=== PATIENT | male | born 1960 | race Asian ===

== ENCOUNTER 2017-07-30 14:02 | Emergency (ER) | payer MEDICAID ==
[~2017-07-30] VITALS: Ht 165.1 cm; Wt 68.0 kg
[2017-07-30 14:02] VITALS: BP 159/102
[2017-07-30] MEDS ORDERED: CLINDAMYCIN HCL 150 MG CAPSULE PO ONE ×2 (14:45→15:00)
== END 2017-07-30 14:50 | disposition home or self-care (01) ==
LOC: ER 14:03
DX: S90.821A Blister (nonthermal), right foot, initial encounter (principal); L03.116 Cellulitis of left lower limb; L04.3 Acute lymphadenitis of lower limb; F17.200 Nicotine dependence, unspecified, uncomplicated; W86.8XXA Exposure to other electric current, initial encounter; Y93.C9 Activity, other involving computer technology and electronic devices; Y92.89 Other specified places as the place of occurrence of the external cause; Y99.0 Civilian activity done for income or pay
CPT/HCPCS: 99283; A4606; Z7610

== ENCOUNTER 2017-08-25 21:48 | Emergency (ER) | payer MEDICAID ==
--- NOTE | 2017-08-25 22:39 | NUR ---
CALLED FOR TRIAGE X3; NO ANSWER
--- NOTE | 2017-08-25 22:45 | NUR ---
INFORMED PT LEFT
== END 2017-08-25 22:45 | disposition left against medical advice (07) ==
LOC: ER 21:51
DX: L03.019 Cellulitis of unspecified finger (principal); Z53.21 Procedure and treatment not carried out due to patient leaving prior to being seen by health care provider

== ENCOUNTER 2017-08-26 05:14 | Emergency (ER) | payer MEDICAID ==
[~2017-08-26] VITALS: Ht 152.4 cm; Wt 63.5 kg
[2017-08-26 06:10] VITALS: BP 145/66
== END 2017-08-26 06:26 | disposition home or self-care (01) ==
LOC: ER 05:14
DX: L03.116 Cellulitis of left lower limb (principal); F17.200 Nicotine dependence, unspecified, uncomplicated; Z48.00 Encounter for change or removal of nonsurgical wound dressing
CPT/HCPCS: A4606; Z7502; Z7610